=== PATIENT | female | born 1965 | race Caucasian/White ===

== ENCOUNTER 2021-06-20 14:08 | Outpatient (CLI) | payer MEDICAID, SELFPAY ==
--- NOTE | 2021-06-20 14:19 | XR_ITS ---
WS: [email or web address] LEFT SHOULDER: 3 VIEW(S) TECHNIQUE: Internal and external rotation with Y view. HISTORY: PAIN OF LEFT SHOULDER JOINT ON MOVEMENT COMPARISON: None available. No acute fracture or dislocation. Healed fracture involving the distal LEFT clavicle. Very slight ramírez rowing of the AC joint and glenohumeral joint. No soft tissue abnormality. Visualized LEFT upper lung is clear. There is a very small osteophytes se en on the Y view encroaching upon the rotator cuff. This osteophyte may be from the distal clavicle o r the acromion. XR/XR shoulder LT min 2V* [id number] IMPRESSION: 1. Very small osteophyte encroaching upon the rotator cuff seen on the Y view. Osteophyte is either from the acromion or distal clavicle. 2. Healed distal LEFT clavicle fracture.
== END 2021-06-20 14:09 | disposition home or self-care (01) ==
PROVIDERS: Visit Provider Nurse Practitioner Family
DX: M25.712 Osteophyte, left shoulder (principal)
CPT/HCPCS: 73030

== ENCOUNTER 2021-10-04 13:55 | Outpatient (RCR) | payer MEDICAID, SELFPAY | END 2021-10-23 23:00 | disposition home or self-care (01) | LOC: SPT 13:55 | PROVIDERS: Referring Provider Nurse Practitioner Family; Visit Provider Nurse Practitioner Family | DX: M25.512 Pain in left shoulder (principal) | CPT/HCPCS: 97110; 97162 ==

== ENCOUNTER 2021-11-10 10:48 | Outpatient (CLI) | payer MEDICAID, SELFPAY ==
--- NOTE | 2021-11-10 10:58 | MM_ITS ---
WS: [email or web address] SCREENING 3D TOMOSYNTHESIS DIGITAL MAMMOGRAM WITH CAD HISTORY: SCREENING COMPARISON: None available. Bilateral CC and MLO views submitted. Computer aided detection analyzed. Breast composition: The breasts are heterogeneously dense, which may obscure small masses. There are numerous areas for which further evaluation is necessary. Vague calcifications upper outer quadrant o f the RIGHT breast. There are additional scattered asymmetries. In the LEFT breast there is a cluster of calcifications posteriorly near 12:00 for which magnification views are recommended. Additional s pot compression views over the lateral breast. There are at least 2 partially obscured masses in the LEFT breast for which further evaluation is necessary. MM/[place] [id number] IMPRESSION: BI-RADS: 0-Incomplete: Need additional imaging evaluation FOLLOW UP: Need Additional Imaging LEFT breast: Spot compression views (CC and MLO). True ML. Ultrasound to follow if abnormality persists. RIGHT AND LEFT BREASTs: Magnification views of suspicious calcification CC and MLO. True ML. Views
== END 2021-11-10 10:49 | disposition home or self-care (01) ==
LOC: RADSHAW 10:51
PROVIDERS: Visit Provider Nurse Practitioner Family
DX: Z12.31 Encounter for screening mammogram for malignant neoplasm of breast (principal)
CPT/HCPCS: 77063; 77067

== ENCOUNTER → 2021-11-14 14:47 | Outpatient (BNVA) | payer MEDICAID, SELFPAY | PROVIDERS: Referring Provider Nurse Practitioner Family; Visit Provider Orthopaedic Surgery | DX: M54.2 Cervicalgia (principal) | CPT/HCPCS: 72050; 73030; 99203 ==

== ENCOUNTER 2021-12-22 13:50 | Outpatient (CLI) | payer MEDICAID, SELFPAY ==
--- NOTE | 2021-12-22 13:57 | MM_ITS ---
WS: [email or web address] ADDITIONAL VIEWS BILATERAL MAMMOGRAM WITH DIGITAL BREAST tomosynthesis. BILATERAL BREAST ULTRASOUND, HISTORY: ABNORMAL MAMMOGRAM COMPARISON: 11/10/2021 Right breast: There are diffuse scattered very fine calcifications throughout the breast. The tissue is very dense within the breast obscuring detail. There is extensive asymmetry and nodularity. No dis crete well-formed mass. Left breast: Numerous calcifications and nodules scattered throughout the breast. Calcifications are coarse therefore likely benign. There are additional scattered calcifications. Several nodules in the LEFT breast along the 3:00 axis. BREAST ULTRASOUND RIGHT breast ultrasound: There are multiple masses within the RIGHT breast with mixed density. Cystic and more solid masses. Solid mass at 12:00 measures 7 x 5 x 7 mm. There are additional other solid a nd cystic masses. LEFT breast: There are numerous solid and cystic masses throughout the breast. The largest is hypoech oic at 1:00, 1 cm from the nipple measuring 1.3 x 1.0 x 1.5 cm. MM/[place] [id number] IMPRESSION: BI-RADS: 3-Probably Benign FOLLOW UP: 6 Month Follow-up 1. Patient has had multiple prior biopsies in the past for masses. These mammo grams are not available for comparison or review. We are still attempting to re trieve these images but it is not likely these will be found. 2. Due to the multiplicity of these masses these are probably benign. Calcific ations are also noted within each breast which are diffuse and a few clustered groups. 3. Due to the complex nature of this mammogram a 6 month follow-up is recommen ded to try to document stability of these masses and calcifications.
== END 2021-12-22 13:51 | disposition home or self-care (01) ==
PROVIDERS: PCP Nurse Practitioner Family; Visit Provider Nurse Practitioner Family
DX: R92.8 Other abnormal and inconclusive findings on diagnostic imaging of breast (principal)
CPT/HCPCS: 76642; 77062

== ENCOUNTER 2022-02-09 15:32 | Outpatient (CLI) | payer MEDICAID, SELFPAY ==
--- NOTE | 2022-02-09 16:00 | MR_ITS ---
WS: [email or web address] MRI CERVICAL SPINE NONCONTRAST TECHNIQUE: Sagittal T1, T2 and STIR imaging. Axial T2, gradient, and fiesta imaging. CLINICAL INFORMATION: Neck pain COMPARISON: None. FINDINGS: Minimal cervical curve. Straightening of the normal cervical lordosis. No significant Central canal s tenosis. Cord signal is normal. C2-C3: Normal. C3-C4: Mild facet arthropathy. Mild LEFT and no significant RIGHT foraminal narrowing. Spinal canal i s patent. C4-C5: Mild bilateral bony foraminal narrowing. Mild facet arthropathy. Spinal canal is patent. C5-C6: Disc osteophyte ridging. Mild facet arthropathy. Mild RIGHT and no significant LEFT bony natalia inal narrowing. C6-C7: Disc osteophytic ridging. Moderate RIGHT and no significant LEFT bony foraminal narrowing. C7-T1: Osteophytic ridging. Mild facet arthropathy. Spinal canal and foramen are patent Visualized brain stem structures: Normal. Prevertebral soft tissues: Normal. MR/MR cervical spin wo con* [id number] IMPRESSION: 1. Straightening of the normal cervical lordosis. Cord signal is normal. No si gnificant central canal stenosis. 2. Foraminal narrowing worse at Moderate RIGHT C6-C7 bony foraminal narrowing. 3. Mild facet arthropathy C3-C4 C4-C5 and C5-C6. 4. Otherwise mild bony foraminal narrowing described above.
== END 2022-02-09 15:33 | disposition home or self-care (01) ==
LOC: RAD 15:33
PROVIDERS: PCP Nurse Practitioner Family; Visit Provider Orthopaedic Surgery
DX: M54.2 Cervicalgia (principal)
CPT/HCPCS: 72141

== ENCOUNTER 2022-07-03 09:29 | Outpatient (CLI) | payer MEDICAID, SELFPAY ==
--- NOTE | 2022-07-03 09:44 | MM_ITS ---
WS: [email or web address] DIAGNOSTIC BILATERAL DIGITAL BREAST TOMOSYNTHESIS MAMMOGRAPHY WITH CAD Bilateral breast ultrasound, limited HISTORY: 6 M F/U COMPARISON: 12/22/2021, 11/10/2021 TECHNIQUE: Bilateral craniocaudad, mediolateral oblique, and mediolateral views are submitted with to mosynthesis and SM. Magnification views CC and MLO projections. Computer aided detection utilized. Breast composition: The breasts are extremely dense, which lowers the sensitivity of mammography. The re are numerous masses and calcifications within each breast. No adverse change is identified. The ca lcifications or masses are stable. No new palpable areas or nipple retraction. Bilateral breast ultrasound, limited. RIGHT breast: Simple cyst at 12:00. Solid mass at 12:00 measures 7 x 7 x 4 mm. Solid mass at 9:00 yamil sures 6 x 6 x 6 mm. Stable hypoechoic nodules at the 1:00 axis. LEFT breast ultrasound, limited. Hypoechoic mass at 2:00, 1 cm from the nipple measures 8 x 8 x 7 mm. Additional hypoechoic mass at 2:00 measures 13 x 13 x 10 mm. There are numerous small hypoechoic mas ses throughout the breast. MM/[place] [id number] IMPRESSION: BI-RADS: 3-Probably Benign FOLLOW UP: 6 Month Follow-up No obvious change in the calcifications or numerous breast nodules since 11/11/19 22. Due to the numerous abnormalities continued six-month mammographic and ultr asound follow-up recommended.
== END 2022-07-03 09:30 | disposition home or self-care (01) ==
LOC: RAD 09:30
PROVIDERS: PCP Nurse Practitioner Family; Visit Provider Family Medicine
DX: R92.8 Other abnormal and inconclusive findings on diagnostic imaging of breast (principal); R92.1 Mammographic calcification found on diagnostic imaging of breast; N63.15 Unspecified lump in the right breast, overlapping quadrants; N63.21 Unspecified lump in the left breast, upper outer quadrant
CPT/HCPCS: 76642; 77062; G0279

== ENCOUNTER 2023-01-07 11:44 | Outpatient (CLI) | payer MEDICAID, SELFPAY ==
--- NOTE | 2023-01-07 11:56 | MM_ITS ---
WS: [email or web address] DIAGNOSTIC BILATERAL DIGITAL BREAST TOMOSYNTHESIS MAMMOGRAPHY WITH CAD Bilateral breast ultrasound, limited HISTORY: 6 month follow-up calcifications and breast masses. COMPARISON: 11/10/2021, 12/22/2021, 07/03/2022 TECHNIQUE: Bilateral craniocaudad, mediolateral oblique, and mediolateral views are submitted with to mosynthesis and SM. Spot compression bilateral CC and MLO. Computer aided detection utilized. Breast composition: The breasts are heterogeneously dense, which may obscure small masses. Bilateral breast calcifications or masses are reidentified. These masses are partially obscured. No new mass id entified and no progression of these coarse calcifications. No nipple retraction or distortion. Bilateral breast ultrasound, limited. RIGHT: Cystic and solid masses within the RIGHT breast are all stable. Cystic 12:00, 1 cm from the n ipple measures 8 x 5 x 8 mm. Solid hypoechoic mass at the areolar measures 7 x 5 x 7 mm. There are ad ditional smaller solid masses. None of these have increased in size. LEFT breast: Solid masses are reidentified. In the upper outer quadrant 1 cm from the nipple, the lar gest mass measures 1.3 x 1.0 x 1.5 cm. Several small hypoechoic masses are all stable. No increase in size or number. MM/[place] [id number] IMPRESSION: BI-RADS: 3-Probably Benign FOLLOW UP: 1 Year Follow-up Recommend ultrasound evaluation of the bilateral breast nodules in one year. Continued documentation of long-term stability.
== END 2023-01-07 11:45 | disposition home or self-care (01) ==
PROVIDERS: PCP Family Medicine; Visit Provider Family Medicine
DX: R92.1 Mammographic calcification found on diagnostic imaging of breast (principal); N63.15 Unspecified lump in the right breast, overlapping quadrants; N63.21 Unspecified lump in the left breast, upper outer quadrant
CPT/HCPCS: 76642; 77062; G0279

== ENCOUNTER → 2023-08-14 10:58 | Outpatient (BNVA) | payer MEDICAID, SELFPAY | PROVIDERS: PCP Family Medicine; Visit Provider Anesthesiology Pain Medicine | DX: M54.16 Radiculopathy, lumbar region (principal) | CPT/HCPCS: 72110 ==

== ENCOUNTER 2023-09-06 13:12 | Outpatient (CLI) | payer MEDICAID, SELFPAY ==
--- NOTE | 2023-09-06 13:45 | MR_ITS ---
WS: [email or web address] MRI LUMBAR SPINE NONCONTRAST TECHNIQUE: Sagittal T1, T2 and STIR imaging. Axial T1 and T2 imaging. CLINICAL INFORMATION: M54.16 - Radiculopathy, lumbar region COMPARISON: None. FINDINGS: Mild lumbar curve. No acute compression. No high-grade central canal stenosis. L1-L2: Mild annular bulging. Mild facet arthropathy. Spinal canal and foramen are patent. L2-L3: Mild facet arthropathy. Spinal canal and foramen are patent. L3-L4: No significant disc bulging. Mild facet arthropathy. Spinal canal and foramen are patent. L4-L5: No significant disc bulging. Moderate facet arthropathy. Spinal canal and foramen are patent. L5-S1: Mild annular bulging. Tiny shallow central protrusion. Spinal canal and foramen are patent. Mo derate facet arthropathy. Visualized pelvic bony structures: Normal. Paravertebral soft tissues: Normal Diffuse heterogeneous bone marrow signal nonspecific but can be seen with anemias and smoking. Recom mend correlation with laboratory studies. No focal lesions. IMPRESSION: 1. Mild lumbar curve. No acute compression. No high-grade central canal stenosis. 2. Tiny central protrusion L5-S1. No significant spinal canal or foraminal narrowing. 3. Moderate facet arthropathy L3-L5. 4. Diffuse heterogeneous bone marrow signal nonspecific but can be seen with anemias and smoking. Re commend correlation with laboratory studies.
== END 2023-09-06 13:13 | disposition home or self-care (01) ==
LOC: RAD 13:12
PROVIDERS: PCP Family Medicine; Visit Provider Anesthesiology Pain Medicine
DX: M47.26 Other spondylosis with radiculopathy, lumbar region (principal)
CPT/HCPCS: 72148

== ENCOUNTER → 2023-10-10 15:18 | Outpatient (BNVA) | payer MEDICAID, SELFPAY | PROVIDERS: PCP Family Medicine; Referring Provider Anesthesiology Pain Medicine; Visit Provider Orthopaedic Surgery | DX: M54.9 Dorsalgia, unspecified (principal) | CPT/HCPCS: 36415; 80053; 81001; 85007; 85025 ==

== ENCOUNTER 2023-10-17 13:09 | Outpatient (CLI) | payer MEDICAID, SELFPAY ==
--- NOTE | 2023-10-17 13:45 | MR_ITS ---
WS: [email or web address] MRI CERVICAL SPINE NONCONTRAST TECHNIQUE: Sagittal T1, T2 and STIR imaging. Axial T2, gradient, and fiesta imaging. CLINICAL INFORMATION: M54.12 - Radiculopathy, cervical region COMPARISON: MRI 02/09/2022 FINDINGS: Straightening of the normal cervical lordosis. Cord signal is normal. No high-grade central canal ramírez rowing. C2-C3: Mild facet arthropathy. Spinal canal and foramen are patent. C3-C4: No significant disc bulging. Mild to arthropathy. Spinal canal and foramen are patent. C4-C5: Mild disc osteophytic ridging. Mild facet arthropathy. Mild RIGHT bony foraminal narrowing. C5-C6: No significant disc bulging. Mild to moderate facet arthropathy. Spinal canal and foramen are patent. C6-C7: Mild disc osteophytic ridging. Mild to moderate RIGHT and no significant LEFT foraminal narrow ing. Mild facet arthropathy. Spinal canal is patent. C7-T1: Normal. Visualized brain stem structures: Normal. Prevertebral soft tissues: Normal. IMPRESSION: 1. Straightening of the normal cervical lordosis. Cord signal is normal. 2. Mild to moderate RIGHT C6-7 bony foraminal narrowing similar to previous. 3. Mild to moderate facet arthropathy C3-C4 C4-C5 and C5-C6. 4. Minimal disc bulging at C4-C5 and C6-C7 without significant central canal stenosis.
== END 2023-10-17 13:10 | disposition home or self-care (01) ==
LOC: RAD 13:09
PROVIDERS: PCP Family Medicine; Visit Provider Anesthesiology Pain Medicine
DX: M47.22 Other spondylosis with radiculopathy, cervical region (principal); M48.02 Spinal stenosis, cervical region
CPT/HCPCS: 72141

== ENCOUNTER 2023-10-30 06:31 | Day surgery (SDC) | payer MEDICAID, SELFPAY ==
[2023-10-30] VITALS (13 sets, daily range): BP systolic 103–146; BP diastolic 50–101; PULSE 81–100; RESP 12–18; TEMP 36.1–36.7; O2SAT 95–99; BMI 23.2
--- NOTE | 2023-10-30 | XR_ITS ---
WS: [email or web address] Exam: XR lumbar spine 2-3V* [id number] Date/Time of Exam: 10/30/2023 12:00 AM Reason For Exam: NATY YOST Single intraoperative C-arm image of the lower lumbar spine is submitted. The image is obtained for preoperative planning and localization purposes.
[2023-10-30] MEDS: sodium chloride 0.9% 1,000 ML 30 ML IV (06:54)
--- NOTE | 2023-10-30 07:19 | ANES.PREANE2 ---
Pre-Anesthetic Assessment Height/Weight: Height 1.68 m Weight 65.317 kg Temp Pulse Resp BP Pulse Ox O2 Del Method 97.0 F L 98 17 138/101 97 Room Air 10/30/23 06:40 10/30/23 06:40 10/30/23 06:40 10/30/23 06:40 10/30/23 06:40 10/30/23 06:41 Preop Diagnosis: Lumbar stenosis with neurogenic claudication Operation Date: 10/30/23 08:15 Proposed Procedures p Lumbar Spine Decompression Lumbar Decompression(Not Applicable) - Socrates Beverly, DO Familial anesthetic complications: None Was Beta Speedy taken within 24 hours: N/A Was Clonidine taken within 24 hours: N/A Last intake: Intake Last Liquid Date 10/30/23 Last Liquid Time 23:00 Last Solid Date 10/29/23 Last Solid Time 14:30 Social Tobacco and No alcohol Exam alert, oriented x 3, clear to auscultation bilaterally and regular rate & rhythm Airway Mallampati: Class II CV/HEM Hypertension Anesthetic Plan ASA status: 2 Anesthesia: General Risk of > 500 ml blood loss (7ml/kg in children): No Medications/Allergies Home Medications Medication Instructions Recorded Confirmed Last Taken Type atorvastatin 20 mg tablet 20 mg PO DAILY 04/24/22 10/29/23 10/28/23 History valsartan 80 mg tablet 80 mg PO DAILY 04/24/22 10/29/23 10/29/23 History acetaminophen 500 mg tablet 500 mg PO Q6H PRN Pain 07/24/22 10/29/23 10/26/23 History (Tylenol Extra Strength) gabapentin 300 mg capsule 300 mg PO DAILY 01/22/23 10/29/23 10/29/23 History celecoxib 200 mg capsule 200 mg PO BID PRN pain 30 days #30 10/29/23 10/29/23 Unknown Rx caps Allergies Allergy/AdvReac Type Severity Reaction Status Date / Time Penicillins Allergy RASH Verified 10/29/23 09:44 Current Medications Generic Name Dose Route Start Last Admin Trade Name Freq PRN Reason Stop Dose Admin Sodium Chloride 1,000 mls @ 30 mls/hr 10/30/23 06:45 10/30/23 06:54 Sodium Chloride 0.9% IV 10/31/23 06:44 30 mls/hr .Q24H JENN Administration PFSH Anesthesia Social History Smoking and tobacco/nicotine status: current every day tobacco/nicotine user cigarettes Alcohol intake: never Substance/Drug Use: never Data Anesthesia Cardiac Studies: Holter Monitor 04/24/23
--- NOTE | 2023-10-30 07:27 | W.PM.OPSUD ---
Surgery/Procedure H&P Update DATE OF PROCEDURE: October 30, 2023 DATE H&P PERFORMED: 10/23/23 H&P UPDATE INFORMATION: I have reviewed H&P completed within last 30 days, I have examined patient prior to procedure and No changes to prior documentation PREOP DIAGNOSIS: Lumbar stenosis with neurogenic claudication PLANNED PROCEDURE: Operation Date: 10/30/23 08:15 Proposed Procedures p Lumbar Spine Decompression Lumbar Decompression(Not Applicable) - Socrates Beverly DO
[2023-10-30] MEDS: clindamycin 600 MG/50 ML PREMIX 100 MG IV (08:06)
[2023-10-30] MEDS: lidocaine-epi 1% 20 mL INJ INJECTION (08:47)
--- NOTE | 2023-10-30 09:10 | PM.OP ---
Operative Report Date of procedure: October 30, 2023 Pre-op diagnosis: Lumbar stenosis with neurogenic claudication Post-op diagnosis: same Procedure done: L4-5 laminectomy with partial facetectomy Surgeon: Socrates Beverly DO Estimated blood loss (mL): 5 Procedure: L4-5 laminectomy with partial facetectomy Patient is brought to the operative suite. After undergoing anesthesia they are placed in the prone position. All areas of impingement are well padded. Patient is then prepped and draped in the normal sterile fashion. A skin incision is made over the L4-5 level. This is confirmed under c-arm guidance. A series of dilators are passed and the tubular retractor is docked on the L4 lamina. A bovie is used to clear the soft tissue off the lamina and the L 4/5 facet joint. A high speed chao is then used to perform the laminectomy and take down the medial aspect of the L 4/5 facet joint. A kerrison rongeure was then used to take down the remaining lamina and smooth the edge of the laminectomy up to the point where the ligamentum flavum attaches. Attention was then brought to the medial aspect of the facet joint. The remaining medial aspect of the superior and inferior aspect of the facet joint were taken down with the kerrison from the pedicle of L4 to L 5. The facet joint had significant hypertrophy. Attention was then brought to the Ligamentum Flavum. The ligament was taken down from the lamina of L4 to L5 and out medially to the remaining facet joint. The ligament was thick. The dura was then exposed. The dura was in good repair. The L for nerve was then traced with a curette out the L4/5 foramen and found to be adequately decompressed. The L5 nerve was traced with a curette around the L5 pedicle. The lateral recess was opened with a kerrison helping to further decompress the L5 nerve. Wound is then irrigated copiously with saline and surgiflo is used to stop any bleeding. The tubular retractor is removed and the wound is closed with vicryl and monocryl suture. Glue is then used to protect the wound. A sterile dressing is then placed. Patient was then placed in the supine position and transferred to the PACU in stable condition.
[2023-10-30] MEDS: HYDROcodone-acetaminophen 10-325 mg Tablet 1 TAB PO (10:00)
[2023-10-30] MEDS: cetylpyridinium Lozenge 1 EACH MUCOUS MEM (10:02)
--- NOTE | 2023-10-30 11:00 | ANE.PACU2 ---
Inpatient post-anesthesia follow up: Airway intact: Yes Vital signs: Temperature 98.0 F Pulse Rate 83 Respiratory Rate 18 Blood Pressure 103/55 Pulse Oximetry 97 Oxygen Delivery Me thod Room Air Oxygen Flow Rate Fraction of Inspir ed Oxygen Hydration adequate: Yes Nausea and vomiting: No Pain level: 1 Mental status: Baseline
== END 2023-10-30 11:00 | disposition home or self-care (01) ==
PROVIDERS: PCP Family Medicine; Visit Provider Orthopaedic Surgery
PROC: (CPT 63005; principal; 2023-10-30 08:05)
DX: M48.062 Spinal stenosis, lumbar region with neurogenic claudication (principal); I10 Essential (primary) hypertension; F17.210 Nicotine dependence, cigarettes, uncomplicated
CPT/HCPCS: 63047; 72100; 76000; J0330; J1100; J2250; J2405; J2704; J2710; J3010; J3490; J7030

== ENCOUNTER 2024-04-29 13:25 | Outpatient (CLI) | payer MEDICAID, SELFPAY ==
--- NOTE | 2024-04-29 13:26 | MM_ITS ---
WS: [email or web address] BILATERAL 3D TOMOSYNTHESIS DIGITAL SCREENING MAMMOGRAPHY WITH CAD CLINICAL INFORMATION: SCREENING HISTORY: Screening mammogram. No current complaints. COMPARISON: 2022 TECHNIQUE: Bilateral CC and MLO views. FINDINGS: The breasts are composed of nodular heterogeneous fibroglandular density tissue, which can limit the detection of small underlying mass lesions. Stable dystrophic calcifications LEFT breast. Stable clus ter calcifications and calcified nodules bilaterally. Breast nodularity is similar to previous. MM/MM [facility] tomosynthesis [id number] IMPRESSION: DENSITY:The breasts are heterogeneously dense, which may obscure small masses. BI-RADS: 0 - Incomplete: Need additional imaging evaluation FOLLOW UP: Need Additional Imaging Follow-up bilateral ultrasound recommended in 01/07/2023. Recommend bilateral monika ast ultrasound with comparison to prior examination 01/07/2023
== END 2024-04-29 13:26 | disposition home or self-care (01) ==
LOC: RAD 13:25
PROVIDERS: PCP Family Medicine; Visit Provider Family Medicine
DX: Z12.31 Encounter for screening mammogram for malignant neoplasm of breast (principal); R92.333 Mammographic heterogeneous density, bilateral breasts; R92.1 Mammographic calcification found on diagnostic imaging of breast
CPT/HCPCS: 77063; 77067

== ENCOUNTER 2024-05-12 13:48 | Outpatient (CLI) | payer MEDICAID, SELFPAY ==
--- NOTE | 2024-05-12 13:51 | CT_ITS ---
WS: [email or web address] LDCT LUNG CANCER SCREENING HISTORY: NICOTINE DEPENDENCE, CIGARETTES TECHNIQUE: Axial imaging performed from the apices to 1 cm below the costophrenic angles. Coronal and sagittal reformats are submitted with axial MIP series. All CT scans at [facility] use at least one of these dose optimization techniques: automated exposure control; mA and/or kV adjustment per patient size (includes targeted exams where dose is matched to clinical indication); or iterativ e reconstruction. DLP: 49.72 mGy.cm DIvol: Mean CTDIvol: 0.90 (mGy) COMPARISON: None available. Diagnostic quality: Satisfactory Lungs: Pulmonary hyperexpansion. Done with there is several micronodules throughout the lungs. Majori ty of these micronodules of less than 3 mm. 5 mm noncalcified nodule superior segment RIGHT lower lob e. Additional 5 mm ovoid nodule LEFT lower lobe. No endobronchial lesions. No pneumonia. Heart: Normal size heart with no pericardial effusion.. Other findings: Mild atherosclerosis aorta. Normal size pulmonary artery. Heterogeneous breast. Mammo gram was performed on 04/29/2024. Follow-up is recommended of the nodule in the LEFT breast. Mild incr ease in thoracic kyphosis. No destructive bone lesions. CT/CT lung screening [id number] IMPRESSION: LUNG-RADS: 2-Benign Appearance or Behavior FOLLOW UP: 12 Month: Continue annual screening with LDCT OTHER FINDINGS (S MODIFIER): None.
== END 2024-05-12 13:49 | disposition home or self-care (01) ==
LOC: RAD 13:49
PROVIDERS: PCP Family Medicine; Visit Provider Family Medicine
DX: Z12.2 Encounter for screening for malignant neoplasm of respiratory organs (principal); F17.210 Nicotine dependence, cigarettes, uncomplicated; R91.8 Other nonspecific abnormal finding of lung field; N63.20 Unspecified lump in the left breast, unspecified quadrant
CPT/HCPCS: 71271

== ENCOUNTER 2024-06-11 12:29 | Outpatient (CLI) | payer MEDICAID, SELFPAY ==
--- NOTE | 2024-06-11 12:33 | US_ITS ---
WS: [email or web address] ULTRASOUND BREAST BILATERAL TECHNIQUE: Ultrasound bilateral breast focused area of concern. CLINICAL INFORMATION: ABNORMAL MAMMOGRAM COMPARISON: 01/07/2023 FINDINGS: History of multiple prior biopsies which were reportedly benign. RIGHT BREAST: Multiple cystic and solid nodules in the RIGHT breast are stable compared to 01/07/2023. Solid hypoechoic mass at the areola measures 0.7 x 0.7 x 0.4 cm unchanged. Additional stable simple a nd complex cysts RIGHT breast. LEFT BREAST: Ultrasound LEFT breast at the 1 o'clock position 1 cm from the nipple demonstrates a com plex cyst measuring 0.4 x 0.5 x 0.4 cm. Additional larger complex cyst at the 3 o'clock position 3 cm from the nipple measuring 1.4 x 1.2 x 1.0 cm. US/US breast BI limited* [id number] IMPRESSION: Multiple bilateral cystic and solid nodules appear stable over mult iple prior examinations. Recommend return to annual screening mammography BI-RADS 2 benign Recommend return to annual screening mammography
== END 2024-06-11 12:30 | disposition home or self-care (01) ==
LOC: RAD 12:30
PROVIDERS: PCP Family Medicine; Visit Provider Family Medicine
DX: N63.41 Unspecified lump in right breast, subareolar (principal); N63.21 Unspecified lump in the left breast, upper outer quadrant; N63.23 Unspecified lump in the left breast, lower outer quadrant; R92.8 Other abnormal and inconclusive findings on diagnostic imaging of breast; N60.02 Solitary cyst of left breast
CPT/HCPCS: 76642

== ENCOUNTER 2024-11-20 14:42 | Outpatient (CLI) | payer MEDICAID, SELFPAY ==
--- NOTE | 2024-11-20 15:15 | MR_ITS ---
WS: [email or web address] MRI LUMBAR SPINE WITH CONTRAST TECHNIQUE: Sagittal T1, T2 and STIR imaging. Axial T1 and T2 imaging. Post gadolinium imaging was obtained. CLINICAL INFORMATION: Z98.890 - Other specified postprocedural states COMPARISON: 2023 FINDINGS: Mild lumbar curve. No acute compression. No high-grade central canal stenosis. Heterogeneous bone marrow signal is unchanged compared to previous. Interval LEFT L4-5 hemilaminectomy. L1-L2: Mild annular bulging. Mild facet arthropathy. L2-L3: No significant disc bulging. Mild facet arthropathy. Spinal canal and foramina are patent. L3-L4: Mild annular bulging. Mild facet arthropathy. Spinal canal and foramina are patent. L4-L5: Mild annular bulging. Slight effacement of the thecal sac. Prior LEFT hemilaminectomy. Spinal canal is patent. Tiny LEFT foraminal protrusion with mild LEFT foraminal narrowing. Moderate facet arthropathy. L5-S1: Mild annular bulging. Moderate facet arthropathy. Tiny annular fissure. Slight effacement of the ventral thecal sac. Spinal canal and foramen are patent. Visualized pelvic bony structures: Normal. Paravertebral soft tissues: Normal. MR/MR lumbar spine wo/w con [id number] IMPRESSION: 1. Interval LEFT L4-5 hemilaminectomy. Spinal canal is patent. Mild LEFT L4-5 foraminal narrowing with a tiny LEFT foraminal protrusion. 2. Mild annular bulge L5-S1 with a tiny annular fissure. Slight effacement of the ventral thecal sac. 3. Moderate facet arthropathy L3-L5. 4. No other acute findings.
[2024-11-20] MEDS: gadobenate dimeglumine 20 mL vial 15 ML IV (15:53)
== END 2024-11-20 14:43 | disposition home or self-care (01) ==
PROVIDERS: PCP Family Medicine; Visit Provider Anesthesiology Pain Medicine
DX: Z98.890 Other specified postprocedural states (principal); R29.898 Other symptoms and signs involving the musculoskeletal system; M48.061 Spinal stenosis, lumbar region without neurogenic claudication; M51.379 Other intervertebral disc degeneration, lumbosacral region without mention of lumbar back pain or lower extremity pain; M47.896 Other spondylosis, lumbar region; M43.8X6 Other specified deforming dorsopathies, lumbar region; M51.369 Other intervertebral disc degeneration, lumbar region without mention of lumbar back pain or lower extremity pain; M47.897 Other spondylosis, lumbosacral region
CPT/HCPCS: 72158

== ENCOUNTER 2025-06-14 12:45 | Outpatient (CLI) | payer MEDICAID, SELFPAY ==
--- NOTE | 2025-06-14 | MM_ITS ---
WS: [email or web address] BILATERAL 3D TOMOSYNTHESIS DIGITAL SCREENING MAMMOGRAPHY WITH CAD CLINICAL INFORMATION: ANNUAL SCREENING HISTORY: Screening mammogram. No current complaints. COMPARISON: 2023 TECHNIQUE: Bilateral CC and MLO views. FINDINGS: The breasts are composed of heterogeneous fibroglandular density tissue, which can limit the detection of small underlying mass lesions. No suspicious mass, asymmetry, calcifications, or architectural distortion. No evidence of malignancy. Stable coarse bilateral calcifications. Stable bilateral breast nodules. Prior ultrasound demonstrated multiple cystic and solid nodules. MM/MM [facility] tomosynthesis [id number] IMPRESSION: DENSITY: The breasts are heterogeneously dense, which may obscure small masses. BI-RADS: 2 - Benign FOLLOW UP: 1 Year Follow-up Recommend return to annual screening mammography.
== END 2025-06-14 12:46 | disposition home or self-care (01) ==
LOC: RAD 12:45
PROVIDERS: PCP Family Medicine; Visit Provider Family Medicine
DX: Z12.31 Encounter for screening mammogram for malignant neoplasm of breast (principal); R92.333 Mammographic heterogeneous density, bilateral breasts; R92.323 Mammographic fibroglandular density, bilateral breasts; R92.1 Mammographic calcification found on diagnostic imaging of breast
CPT/HCPCS: 77063; 77067